=== PATIENT | male | born 1950 | race African-American/Black ===

== ENCOUNTER 2022-08-14 06:37 | Emergency (ER) | payer SELFPAY ==
[~2022-08-14] VITALS: Ht 182.9 cm; Wt 76.0 kg
[2022-08-14 06:56] VITALS: BP 146/90
== END 2022-08-14 13:07 | disposition home or self-care (01) ==
LOC: ER 06:37 → EDBD 06:37 → ER 13:07
DX: M79.662 Pain in left lower leg (principal); M79.661 Pain in right lower leg; D57.1 Sickle-cell disease without crisis; F31.9 Bipolar disorder, unspecified; Z90.49 Acquired absence of other specified parts of digestive tract; Z59.00 Homelessness unspecified
CPT/HCPCS: 99283